=== PATIENT | male | born 2005 | race African-American/Black ===

== ENCOUNTER 2023-02-02 20:12 | Emergency (ER) | payer MEDICAID ==
[~2023-02-02] VITALS: Ht 170.2 cm; Wt 62.0 kg
[2023-02-03 00:09] VITALS: BP 113/71
== END 2023-02-03 00:12 | disposition home or self-care (01) ==
LOC: ER 20:12
DX: R07.89 Other chest pain (principal); F12.10 Cannabis abuse, uncomplicated; J45.909 Unspecified asthma, uncomplicated
CPT/HCPCS: 36415; 71046; 84484; 85379; 93005

== ENCOUNTER 2024-10-11 16:15 | Emergency (ER) | payer MEDICAID ==
[~2024-10-11] VITALS: Ht 172.7 cm; Wt 50.7 kg
[2024-10-11 17:19] VITALS: BP 109/67; PULSE 117; RESP 20; TEMP 100.1; O2SAT 96
[2024-10-11] MEDS ORDERED: IBUPROFEN 400 MG TAB PO ONE (17:45)
--- NOTE | 2024-10-11 17:45 | ED.PDOC ---
History of Present Illness HPI Comments 18-year-old male with past medical history pertinent for asthma, presents to ED flu-like symptoms x4 days, associated with cough, congestion, headache, chills, fever. Patient denies any shortness of breath, nausea, vomiting, sore throat, abdominal pain, numbness, tingling, chest pain. He reports taking NyQuil and DayQuil without relief of symptoms. Patient states that his father is sick at home with similar symptoms. Father was also seen in the ED and was swabbed for COVID, flu and received a chest x-ray, which were all negative. Chief Complaint: Flu like Time Seen by MD: 16:58 Primary Care Provider: [facility]AI Reviewed Notes: Nurses Notes, Medications, Allergies Allergies: Coded Allergies: NO KNOWN ALLERGIES (Unverified , 10/11/24) Mode of Arrival: Ambulatory Past Medical History PAST MEDICAL HISTORY: Asthma Surgical History: Denies all surgeries Family History Family History: Unknown Social History Smoker: Non-Smoker Alcohol: Denies ETOH Use Drugs: Marijuana Constitutional: reports: fever; denies: chills, diaphoresis, fatigue, malaise, sweats, weakness, others EENTM: reports: nose congestion; denies: blurred vision, double vision, ear bleeding, ear discharge, ear drainage, ear pain, ear ringing, eye pain, eye redness, hearing loss, mouth pain, mouth swelling, nasal discharge, nose bleeding, nose pain, photophobia, tearing, throat pain, throat swelling, voice changes, others Respiratory: reports: cough; denies: hemoptysis, orthopnea, SOB at rest, shortness of breath, SOB with excertion, stridor, wheezing, others Cardiovascular: denies: chest pain, dizzy spells, diaphoresis, Dyspnea on exertion, edema, irregular heart beat, left arm pain, lightheadedness, palpitations, PND, syncope, others Gastrointestinal: denies: abdomen distended, abdominal pain, blood streaked bowels, constipated, diarrhea, dysphagia, difficulty swallowing, hematemesis, melena, nausea, poor appetite, poor fluid intake, rectal bleeding, rectal pain, vomiting, others Genitourinary: denies: burning, dysuria, flank pain, frequency, hematuria, incontinence, penile discharge, penile sore, pain, testicle pain, testicle swelling, urgency, others Neurological: reports: headache; denies: dizziness, fainting, left sided numbness, left sided weakness, numbness, paresthesia, pre-existing deficit, right sided numbness, right sided weakness, seizure, speech problems, tingling, tremors, weakness, others Musculoskeletal: denies: back pain, gout, joint pain, joint swelling, muscle pain, muscle stiffness, neck pain, others Integumetry: denies: bruises, change in color, change in hair/nails, dryness, laceration, lesions, lumps, rash, wounds, others Allergic/Immunocompromised: denies: Difficulty Healing, Frequent Infections, Hives, Itching, others Hematologic/Lymphatic: denies: anemia, blood clots, easy bleeding, easy bruising, swollen glands, others Endocrine: denies: excessive hunger, excessive sweating, excessive thirst, excessive urination, flushing, intolerance to cold, intolerance to heat, unexplained weight gain, unexplained weight loss, others Psychiatric: denies: anxiety, bipolar disorder, depression, hopeless, panic disorder, schizophrenia, sleepless, suicidal, others All Other Systems: Reviewed and Negative Physical Exam General Appearance: No Apparent Distress, Normal HEENT: Normal ENT Inspection, Pharynx Normal, TMs Normal Neck: Full Range of Motion, Non-Tender, Normal, Normal Inspection Respiratory: Chest Non-Tender, Lungs Clear, No Accessory Muscle Use, No Respiratory Distress, Normal Breath Sounds Cardiovascular: No Edema, No JVD, No Murmur, No Gallop, Normal Peripheral Pulses, Regular Rate/Rhythm Breast Exam: Deferred Gastrointestinal: No Organomegaly, Non Tender, No Pulsatile Mass, Normal Bowel Sounds, Soft Genitalia: Deferred Pelvic: Deferred Rectal: Deferred Extremities: No calf tenderness, Normal capillary refill, Normal inspection, Normal range of motion, Non-tender, No pedal edema Musculoskeletal : Apperance: Normal Neurologic: Alert, direct mail manager II-XII nml as Tested, No Motor Deficits, Normal Affect, Normal Mood, No Sensory Deficits Cerebellar Function: Normal Reflexes: Normal Skin: Dry, Normal Color, Warm Lymphatic: No Adenopathy Was a procedure done? Was a procedure done?: No Differential Dx Considerations may include: Viral syndrome, sinusitis, pneumonia, acute asthma exacerbation X-Ray, Labs, Meds, VS Vital Signs Date Time Temp Pulse Resp B/P (MAP) Pulse Ox O2 Delivery O2 Flow Rate FiO2 10/11/24 17:19 117 20 96 Room Air 10/11/24 17:19 100.1 117 20 109/67 (81) 96 100.1 10/11/24 16:42 100.1 117 20 109/67 (81) 96 X-Ray, Labs, Meds, VS Comment MDM: Patient with history as above presented with flu like symptoms. History obtained from patient. Patient was nontoxic, stable, mildly febrile, ambulatory, no acute distress. Exam as above. Exam reassuring against focal bacterial infection or surgical pathology. Reviewed external records. All findings were discussed with the patient. Differential diagnosis considered. Overall presentation is consistent with viral infection. Low suspicion for bacterial sinusitis, pneumonia, meningitis, endocarditis, or other serious infection. Patient was treated with ibuprofen with improvement in symptoms. Patient was reevaluated and vital signs were reviewed. Consideration was given for admission, but the patient was stable for outpatient management. Advised patient to stay adequately hydrated and treat symptoms at home as needed with Tylenol or Motrin. Disposition: Discussed the need to follow up diagnostics, including incidental findings. Discharged the patient with instructions to obtain outpatient follow up in 1-2 days of today's symptoms and findings, with strict return precautions if patient develops new or worsening symptoms. This medical document was created using the [employer] dictation system. Although this document has been carefully reviewed, there may still be some phonetic and typographical errors, which are due to imperfections of the software program, and do not reflect any compromise in the patient's medical care. Time of 1ST Reevaluation: 17:44 Reevaluation 1ST: Improved Patient Education/Counseling: Diagnosis, Treatment, Prognosis, Need For Follow Up Family Education/Counseling: No Family Present Departure 1 Departure Time of Disposition: 17:44 Impression: Primary Impression: URI (upper respiratory infection) Qualified Codes: J06.9 - Acute upper respiratory infection, unspecified Disposition: 01 HOME / SELF CARE / HOMELESS Condition: Fair e-Prescriptions Ibuprofen Micronized (Ibuprofen) 400 Mg Tab 400 MG PO Q6HPRN PRN, #30 TAB Prov: ENA FRIED PAC 10/11/24 Critical Care Note Critical Care Time?: No Stability Stability form required: No Heart Score Heart Score: Heart Score Response (Comments) Value History N/A 0 EKG N/A 0 Age N/A 0 Risk Factors N/A 0 Troponin N/A 0 Total 0 ENA FRIED [facility] Oct 11, 2024 17:45
[2024-10-11] MEDS ORDERED: IBUP1TAB4 PO (17:46)
== END 2024-10-11 17:46 | disposition home or self-care (01) ==
LOC: ER 16:15
DX: J06.9 Acute upper respiratory infection, unspecified (principal); F12.90 Cannabis use, unspecified, uncomplicated